=== PATIENT | male | born 1945 | race Caucasian/White ===

== ENCOUNTER 2025-05-28 08:14 | Outpatient (CLI) | payer MEDICARE, SELFPAY ==
[2025-05-28 09:11] LABS: Hematocrit 31.8 % (42.0-52.0); Hemoglobin 10.4 g/dL (14.1-18.0); Mean Corpuscular HGB Conc 32.7 g/dL (31.8-35.4); Mean Corpuscular Hemoglobin 31.3 pg (27.0-31.2); Mean Corpuscular Volume 95.8 fl (80-94); Nucleated Red Blood Cells % 0 %; Platelet Count 191 K/mm3 (142-424); Red Blood Count 3.32 M/mm3 (4.60-6.20); Red Cell Distribution Width-SD 42.5 fL; White Blood Count 5.2 K/mm3 (4.8-10.8)
[2025-05-28 09:51] LABS: Alanine Aminotransferase 10 U/L (12-78); Albumin Level 3.8 g/dl (3.5-5.0); Albumin/Globulin Ratio 1.7 (1.1-1.8); Alkaline Phosphatase 83 U/L (38-126); Anion Gap 9.7 mEq/L (5-15); Aspartate Amino Transferase 17 U/L (17-59); Bilirubin,Total 0.4 mg/dl (0.2-1.3); Blood Urea Nitrogen 39 mg/dl (9-20); Calcium 9.4 mg/dl (8.4-10.2); Carbon Dioxide 29 mmol/L (22.0-30.0); Chloride 104 mmol/L (98-107); Cholesterol 115 mg/dl (140-200); Creatinine,Serum 1.40 mg/dl (0.66-1.25); Estimated Glomerular Filt Rate 49 ml/min (>60); GFR (African American) 59 ML/MIN (>60); Globulin 2.3 g/dL (1.3-3.2); Glucose 110 mg/dl (74-100); HDL Cholesterol 29 mg/dl (40-60); Potassium 4.7 mmoL/L (3.5-5.1); Sodium 138 mmol/L (136-145); Total Protein,Serum 6.1 g/dl (6.3-8.2); Triglycerides 223 mg/dl (30-150)
[2025-05-28 10:15] LABS: Iron 79 ug/dL (49-181)
[2025-05-28 10:16] LABS: Hemoglobin A1C 6.9 % (4.0-6.0)
[2025-05-28 10:24] LABS: Total Iron Binding Capacity 226 ug/dL (261-462)
[2025-05-28 10:51] LABS: Ferritin 45.6 ng/ml (17.9-464)
== END 2025-05-28 23:59 | disposition home or self-care (01) ==
LOC: LAB.DROPOF 08:15
PROVIDERS: PCP Family Medicine; Visit Provider Family Medicine
DX: D50.9 Iron deficiency anemia, unspecified (principal); E11.9 Type 2 diabetes mellitus without complications; E78.5 Hyperlipidemia, unspecified; I10 Essential (primary) hypertension
CPT/HCPCS: 36415; 80053; 80061; 82728; 83036; 83540; 83550; 85027